=== PATIENT | female | born 1990 | race Caucasian/White ===

== ENCOUNTER 2016-11-20 05:43 | Observation (INO) | payer BC ==
[2014-08-13 15:09] VITALS: BP 128/77
[2016-11-20] MEDS ORDERED: IV RINGERS,LACTATED 1000ML 1,000 ML IV SCH (06:00)
[2016-11-20 06:19] LABS: BILIRUBIN,URINE NEGATIVE (NEG); GLUCOSE,URINE NEGATIVE (NEG); NITRITE,URINE NEGATIVE (NEG); UROBILINOGEN,URINE 0.2 mg/dL (0.2 mg/dL)
[2016-11-20 06:28] LABS: PROTEIN,URINE 100 mg/dL (NEG-TRACE)
[2016-11-20 06:29] LABS: BACTERIA,URINE MANY /HPF (0-FEW); SQUAMOUS EPITHELIAL CELL,UR MANY /LPF
[2016-11-20 10:43] LABS: BASO % 0 % (0-3); EOS % 0 % (0-3); HEMATOCRIT 38.8 % (36.0-47.0); HEMOGLOBIN 13.3 g/dL (12.0-15.5); LYMPH # 2.2 x10^3/uL (1.0-4.8); LYMPH % 21 % (24-48); MEAN CORPUSCULAR HEMOGLOBIN 31 pg (25-35); MEAN CORPUSCULAR HGB CONC 34 g/dL (31-37); MEAN CORPUSCULAR VOLUME 90 fL (79-100); MONO % 9 % (0-9); NEUT % 70 % (31-73); PLATELET COUNT 172 x10^3/uL (140-400); RED BLOOD COUNT 4.31 x10^6/uL (3.50-5.40); RED CELL DISTRIBUTION WIDTH 14.5 % (11.5-14.5); WHITE BLOOD COUNT 10.5 x10^3/uL (4.0-11.0)
[2016-11-20 10:44] LABS: CALCIUM 8.9 mg/dL (8.5-10.1); CREATININE 0.7 mg/dL (0.6-1.0); GFR 100.4; POTASSIUM 4.4 mmol/L (3.5-5.1)
[2016-11-20 10:50] LABS: ALBUMIN 2.3 g/dL (3.4-5.0); ALBUMIN/GLOBULIN RATIO 0.6 (1.0-1.7); TOTAL BILIRUBIN 0.2 mg/dL (0.2-1.0); TOTAL PROTEIN 6.3 g/dL (6.4-8.2); URIC ACID 5.2 mg/dL (2.6-6.0)
== END 2016-11-20 14:00 | disposition home or self-care (01) ==
LOC: 3 SO LND 05:43
PROVIDERS: ADMIT Family Medicine; ATTEND Family Medicine
DX: O26.893 Other specified pregnancy related conditions, third trimester (principal); R10.10 Upper abdominal pain, unspecified; Z3A.34 34 weeks gestation of pregnancy
CPT/HCPCS: 36415; 80053; 81001; 83615; 84550; 85027; 87086; G0378; G0379

== ENCOUNTER → 2016-11-25 | Outpatient (CLI) | payer BC ==
[2014-08-13 15:09] VITALS: BP 128/77
--- NOTE | 2016-11-25 11:03 | RAD ---
Indication: Hypertension. Biophysical profile was performed. There is a single live fetus in a cephalic presentation. Cardiac activity is measured at 142 bpm. The placenta is anterior. Amniotic fluid volume is slightly low with RASHARD of 6 cm. Biophysical profile score is 6 out of 8 with deduction given for lack of breathing visualized. Impression: Biophysical profile score 6 out of 8, as described. There was a lack of breathing visualized. Amniotic fluid volume is slightly low with an index of 6 cm.
== END | disposition home or self-care (01) ==
LOC: US 09:31
PROVIDERS: ATTEND Family Medicine
DX: O11.9 Pre-existing hypertension with pre-eclampsia, unspecified trimester (principal)
CPT/HCPCS: 76819

== ENCOUNTER 2016-11-27 13:49 | Observation (INO) | payer BC ==
[2014-08-13 15:09] VITALS: BP 128/77
== END 2016-11-27 15:00 | disposition home or self-care (01) ==
LOC: 3 SO LND 13:49
PROVIDERS: ADMIT Family Medicine; ATTEND Family Medicine
DX: O36.8130 Decreased fetal movements, third trimester, not applicable or unspecified (principal); Z3A.35 35 weeks gestation of pregnancy
CPT/HCPCS: G0378; G0379; 59025